=== PATIENT | male | born 1965 | race Asian ===

== ENCOUNTER 2019-01-17 06:38 | Day surgery (SDC) | payer BC ==
[2019-01-16 18:51] VITALS: BMI 42.5
[2019-01-17] MEDS ORDERED: ceFAZolin SODIUM 1 GM VIAL IVPB ONE (10:54)
[2019-01-17] MEDS ORDERED: LIDOCAINE HCL 1%, 10 MG/ML (20ML VIAL) NR ONE ×2 (10:59)
[2019-01-17] MEDS ORDERED: ONDANSETRON 4 MG/2 ML VIAL IVPUSH PRN (11:39)
[2019-01-17] MEDS ORDERED: oxyCODONE HCL 5 MG TABLET PO PRN (11:39)
[2019-01-17] MEDS ORDERED: PROMETHAZINE HCL 25 MG/1 ML VIAL IVPUSH PRN (11:39)
--- NOTE | 2019-01-17 11:39 | HP ---
Satellite [facility] - Chief Complaint History of Present Illness: 53 year old man with mass in left neck which has been growing slowly. History Source: Patient Limitations to Obtaining History: No Limitations - Past Medical History Allergies/Adverse Reactions: Allergies Allergy/AdvReac Type Severity Reaction Status Date / Time No Known Allergies Allergy Verified 01/17/19 08:59 Cardiovascular: Yes: HTN Endocrine: Yes: Diabetes Mellitus - Current Medications Current Medications: Home Medications Medication Instructions Recorded Losartan Potassium 100 mg PO DAILY 08/13/13 Albuterol Sulfate Inhaler - 1 - 2 inh PO PRN 01/16/19 [Ventolin Hfa Inhaler -] Atorvastatin Calcium [Lipitor] 20 mg PO DAILY 01/16/19 Escitalopram Oxalate [Lexapro -] 10 mg PO DAILY 01/16/19 Glimepiride [Amaryl -] 4 mg PO BID 01/16/19 Metoprolol Succinate [Toprol Xl -] 100 mg PO HS 01/16/19 Nifedipine [Procardia Xl] 60 mg PO DAILY 01/16/19 Sitagliptin Phos/Metformin HCl 1 each PO BID 01/16/19 [Janumet Xr 50-500 mg Tablet] Satellite Physical Exam - Physical Examination Vital Signs: Vital Signs Period Temp Pulse Resp BP Sys/Best Pulse Ox Last 24 Hr 98.6 F 104 18 136/83 94-94 General Appearance: Obese ENT: Other (Left neck mass ~3 cm in posterior triangle. No skin dimpling) Lung: Clear to auscultation Heart: Regular rate & rhythm Abdomen: Soft Extremities: No edema Satellite Impression/Plan - Impression/Plan Impression: Mass of neck Operative Procedure: Excisional biopsy Date to be Performed: 01/17/19
--- NOTE | 2019-01-17 11:40 | OP ---
Operative Note - Note: Operative Date: 01/17/19 Pre-Operative Diagnosis: Mass left neck Operation: Excsion of mass left neck 3 cm Findings: Lipomatous mass in deep plane left neck Post-Operative Diagnosis: Same as Pre-op Surgeon: Augusto Eisenberg Anesthesiologist/OBSERVER GRAVITY PROSPECTING: Ravinder Madrid Anesthesia: Fractional Specimens Removed: Mass left neck
[2019-01-17] MEDS ORDERED: ACETAMINOPHEN 325 MG TABLET (FP) PO PRN (11:41)
[2019-01-17 12:34] VITALS: PULSE 103
[2019-01-17 13:29] VITALS: BP 147/91; TEMP 98.5
--- NOTE | 2019-01-19 16:32 | PATH ---
Surgical Pathology Report Patient Name: LAURA NAVARRO [facility]. Rec. #: [id number] /Age/Gender: 1965 (Age: 53) / M Account: [id number] Location: [facility] SURGICAL Taken: 01/17/2019 Received: 01/17/2019 Reported: 01/19/2019 Physicians: Augusto Eisenberg M.D. Specimen(s) Received LEFT NECK MASS Clinical History Left neck mass Final Diagnosis NECK MASS, LEFT, EXCISION: MATURE FIBROADIPOSE TISSUE CONSISTENT WITH LIPOMA. SCANT SKELETAL MUSCLE IDENTIFIED. Electronically Signed Bonny Cody M.D. Gross Description Received in formalin labeled "left neck mass," is a 4.3 x 3.8 x 0.7 cm aggregate of multiple isabel yellow, unoriented portions of soft tissue. Sectioning reveals unremarkable yellow, lobulated adipose tissue. Graining Machine Operator sections are submitted 4 cassettes. /01/18/2019 saudi/01/18/2019
--- NOTE | 2019-01-23 06:24 | OP ---
DATE OF OPERATION: 01/17/2019 SURGEON: Augusto Basilio MD PROCEDURE: Excision mass of left neck, 3 cm. PREOPERATIVE DIAGNOSIS: Mass of the left neck. POSTOPERATIVE DIAGNOSIS: Mass of the left neck. ANESTHESIA: Fractional. ANESTHESIOLOGIST: Ravinder Madrid MD OPERATIVE FINDINGS: There was a lipomatous mass in the deep tissue plane of the left neck in the posterior triangle. The mass was lobulated and measured approximately 3 cm in diameter. OPERATIVE PROCEDURE: Following routine patient identification with side and site verification, the patient was placed in the right lateral decubitus position. The left neck was prepped with ChloraPrep. Then, 1% lidocaine was infiltrated over the mass at the base of the left neck in the posterior triangle of the neck. A transverse incision was made and was carried into subcutaneous tissues using cautery for hemostasis. The subcutaneous tissues were divided sharply until the mass was reached. It was then carefully mobilized from the surrounding tissues with care not to issue any of the adjacent nerves. The mass was shelled out of a deep tissue compartment and removed and sent to Pathology. The wound was irrigated and closed with interrupted suture of 3-0 Vicryl in layers and subcuticular suture of 4-0 Biosyn on the skin. A sterile dressing was applied, and the patient was taken to the recovery room in stable condition. AUGUSTO BASILIO M.D. [id number]
== END 2019-01-17 13:25 | disposition home or self-care (01) ==
LOC: JASU-SURG 06:38
PROVIDERS: ATTEND Surgery
PROC: 0JB50ZZ Excision of Left Neck Subcutaneous Tissue and Fascia, Open Approach (ICD-10-PCS; principal; 2019-01-17 10:00)
DX: D48.1 Neoplasm of uncertain behavior of connective and other soft tissue (principal); I10 Essential (primary) hypertension; E11.9 Type 2 diabetes mellitus without complications; Z79.84 Long term (current) use of oral hypoglycemic drugs
CPT/HCPCS: 82962; 88307-TC; 94760

== ENCOUNTER 2023-08-12 04:23 | Day surgery (SDC) | payer BC ==
[2023-08-08 12:23] VITALS: BMI 38.3
[2023-08-12] MEDS ORDERED: CEFAZOLIN SODIUM 2 GM VIAL ONE (07:55)
[2023-08-12 08:34] VITALS: TEMP 97.8
[2023-08-12 09:07] VITALS: RESP 20
[2023-08-12 09:08] VITALS: BP 128/83; PULSE 84
== END 2023-08-12 09:11 | disposition home or self-care (01) ==
LOC: JASU-ENDO 04:23
PROVIDERS: ATTEND Internal Medicine Gastroenterology
PROC: 0DBP8ZX Excision of Rectum, Via Natural or Artificial Opening Endoscopic, Diagnostic (ICD-10-PCS; 2023-08-12)
PROC: 0DB98ZX Excision of Duodenum, Via Natural or Artificial Opening Endoscopic, Diagnostic (ICD-10-PCS; 2023-08-12)
PROC: 0DB78ZX Excision of Stomach, Pylorus, Via Natural or Artificial Opening Endoscopic, Diagnostic (ICD-10-PCS; 2023-08-12)
PROC: 0DB68ZX Excision of Stomach, Via Natural or Artificial Opening Endoscopic, Diagnostic (ICD-10-PCS; 2023-08-12)
PROC: 0DBN8ZX Excision of Sigmoid Colon, Via Natural or Artificial Opening Endoscopic, Diagnostic (ICD-10-PCS; principal; 2023-08-12 08:00)
DX: Z12.11 Encounter for screening for malignant neoplasm of colon (principal); D12.8 Benign neoplasm of rectum; K63.5 Polyp of colon; K64.8 Other hemorrhoids; K21.00 Gastro-esophageal reflux disease with esophagitis, without bleeding; K29.40 Chronic atrophic gastritis without bleeding; Z86.010 Personal history of colon polyps; I10 Essential (primary) hypertension; E11.42 Type 2 diabetes mellitus with diabetic polyneuropathy; Z79.84 Long term (current) use of oral hypoglycemic drugs
CPT/HCPCS: 82962; 88305-TC; 88342-TC